=== PATIENT | male | born 1975 | race Caucasian/White ===

== ENCOUNTER → 2017-08-10 | Outpatient (CLI) | payer BC, OTHER ==
[~2017-08-10] MED LIST: ASCO500T16 PO; FLNIN NAE; amoxicillin PO
--- NOTE | 2017-08-10 10:47 | DIAGNOSTIC IMAGING REPORT ---
CHEST 2 VIEWS ROUTINE HISTORY: Cough. COMPARISON: None. FINDINGS: The lungs are clear. Cardiac silhouette is normal in size. No pleural effusions. No pneumothorax. IMPRESSION: No acute process. Electronically signed by: Nicho Weaver M.D. 08/10/2017 10:46 AM Dictated Date/Time: 08/10/2017 10:44 AM
== END | disposition home or self-care (01) ==
LOC: C.RAD1850 10:08
PROVIDERS: ATTEND Family Medicine
DX: J18.9 Pneumonia, unspecified organism (principal)